=== PATIENT | female | born 1960 ===

== ENCOUNTER 2021-04-03 07:11 | Outpatient (CLI) | payer OTHER ==
[~2021-04-03 07:11] MED LIST: CEFADROXIL500 MG; PNEU16DI2
== END 2021-04-03 07:13 | disposition home or self-care (01) ==
LOC: NUCLEAR 07:11
PROVIDERS: ATTEND Specialist
DX: K81.9 Cholecystitis, unspecified (principal)
CPT/HCPCS: 78226; A9537